=== PATIENT | male | born 1965 | race Caucasian/White ===

== ENCOUNTER → 2017-01-04 | Day surgery (SDC) | payer BC | LOC: MSO 08:29 → EDSEX 08:29 → MSO 10:06 | DX: Z12.11 Encounter for screening for malignant neoplasm of colon (principal); K57.30 Diverticulosis of large intestine without perforation or abscess without bleeding; F17.210 Nicotine dependence, cigarettes, uncomplicated; Z86.74 Personal history of sudden cardiac arrest | CPT/HCPCS: 00810; J7120 ==

== ENCOUNTER → 2018-02-18 | Outpatient (CLI) | payer BC | LOC: RAD 09:32 | DX: I77.89 Other specified disorders of arteries and arterioles (principal) ==

== ENCOUNTER → 2018-02-24 | Outpatient (CLI) | payer BC | LOC: RAD 10:00 | DX: R22.1 Localized swelling, mass and lump, neck (principal) ==

== ENCOUNTER → 2018-11-16 | Outpatient (CLI) | payer BC | LOC: RAD 07:00 | DX: R22.1 Localized swelling, mass and lump, neck (principal) | CPT/HCPCS: A9585 ==